=== PATIENT | female | born 1940 | race Caucasian/White ===

== ENCOUNTER 2019-07-31 17:03 | Emergency (ER) | payer MEDICARE, OTHER ==
[2019-07-31 19:56] LABS: #Neutrophils 3.8 thou/uL (1.40-6.50); %Basophils 1.2 % (0.0-1.0); %Eosinophils 2.4 % (0.0-10.0); %Lymphocytes 35.1 % (21.0-51.0); %Monocytes 7.6 % (0.0-10.0); %Neutrophils 53.8 % (42.0-75.0); Hemoglobin 12.6 g/dL (12.0-16.0); Mean Corpuscular HGB CONC 34.1 g/dL (32.0-36.0); Mean Corpuscular Hemoglobin 31.2 pg (27.0-31.0); Mean Corpuscular Volume 91.4 fL (78.0-98.0); Mean Platelet Volume 6.9 fL (7.4-10.4); Platelet Count 316 thou/uL (130-400); RBC Distribution Width 12.6 % (11.5-14.5); Red Blood Cell (RBC) Count 4.04 mill/uL (4.20-5.40); White Blood Cell (WBC) Count 7.1 thou/uL (4.8-10.8)
[2019-07-31 19:57] LABS: #Basophils 0.1 thou/uL (0.0-0.2); #Eosinphils 0.2 thou/uL (0.0-0.7); #Lymphocytes 2.5 thou/uL (1.20-3.40); #Monocytes 0.5 thou/uL (0.11-0.59)
[2019-07-31 20:03] LABS: INR-International Normal Ratio 1.3; PTT 35.9 SEC (22.9-36.1); Prothrombin Time 15.9 SEC (12.0-14.7)
[2019-07-31 20:06] LABS: Bilirubin Negative (Negative); Blood, Urine Negative (Negative); Clarity Clear (Clear); Glucose, Urine (Dipstick) Normal (Negative); Leukocyte Negative Leu/uL (Negative); Nitrite Negative (Negative); Protein, Urine (Dipstick) Negative (Neg-Trace); Urobilinogen Normal mg/dL (Less than 2)
[2019-07-31 20:16] LABS: ALT (SGPT) 11 U/L (8-55); AST (SGOT) 22 U/L (5-34); Albumin 4.2 g/dL (3.4-4.8); Alkaline Phosphatase 75 U/L (40-110); Anion Gap 14 mmol/L (10-20); BUN (Urea Nitrogen) 23 mg/dL (9.8-20.1); Bilirubin, Total 0.3 mg/dL (0.2-1.2); Calc. Creatinine Clearance 0 mL/min (70-130); Calcium 9.4 mg/dL (7.8-10.44); Carbon Dioxide 32 mmol/L (23-31); Chloride 96 mmol/L (98-107); Estimated GFR-MDRD 46; Glucose 106 mg/dL (83-110); Potassium 4.1 mmol/L (3.5-5.1); Protein, Total 8.2 g/dL (6.0-8.3); Sodium 138 mmol/L (136-145)
== END 2019-07-31 21:50 | disposition home or self-care (01) ==
LOC: ERS 17:03
DX: K62.5 Hemorrhage of anus and rectum (principal); I10 Essential (primary) hypertension; F32.9 Major depressive disorder, single episode, unspecified
CPT/HCPCS: 36415; 80053; 81003; 82274; 83605; 85025; 85610; 85730; 86850; 86900; 86901; 99283

== ENCOUNTER 2021-06-23 10:08 | Inpatient (IN) | payer MEDICARE, OTHER ==
[2021-06-23 10:40] LABS: #Eosinphils 0.1 thou/uL (0.0-0.7); #Lymphocytes 1.5 thou/uL (1.20-3.40); #Monocytes 0.7 thou/uL (0.11-0.59); #Neutrophils 4.7 thou/uL (1.40-6.50); %Basophils 0.4 % (0.0-1.0); %Eosinophils 1.7 % (0.0-10.0); %Lymphocytes 21.3 % (21.0-51.0); %Monocytes 9.4 % (0.0-10.0); %Neutrophils 67.3 % (42.0-75.0); Hemoglobin 12.9 g/dL (12.0-16.0); Mean Corpuscular HGB CONC 33.3 g/dL (32.0-36.0); Mean Corpuscular Hemoglobin 31.1 pg (27.0-31.0); Mean Corpuscular Volume 93.4 fL (78.0-98.0); Mean Platelet Volume 6.9 fL (7.4-10.4); Platelet Count 221 thou/uL (130-400); RBC Distribution Width 12.6 % (11.5-14.5); Red Blood Cell (RBC) Count 4.15 mill/uL (4.20-5.40)
[2021-06-23 11:01] LABS: ALT (SGPT) 17 U/L (8-55); AST (SGOT) 23 U/L (5-34); Albumin 3.8 g/dL (3.4-4.8); Alkaline Phosphatase 73 U/L (40-110); Anion Gap 12 mmol/L (10-20); BUN (Urea Nitrogen) 21 mg/dL (9.8-20.1); Bilirubin, Total 0.6 mg/dL (0.2-1.2); Calc. Creatinine Clearance 0 mL/min (70-130); Calcium 9.4 mg/dL (7.8-10.44); Carbon Dioxide 26 mmol/L (23-31); Chloride 103 mmol/L (98-107); Globulin 3.4 g/dL (2.4-3.5); Glucose 107 mg/dL (83-110); Lipase 12 U/L (8-78); Potassium 3.8 mmol/L (3.5-5.1); Protein, Total 7.2 g/dL (5.8-8.1); Sodium 137 mmol/L (136-145)
[2021-06-23 12:13] LABS: SARS-CoV-2 NAA Rapid Test Not Detected (NotDetected)
[2021-06-23 12:20] LABS: Bilirubin Negative (Negative); Blood, Urine Negative (Negative); Glucose, Urine (Dipstick) Negative (Negative); Ketone, Urine Negative (Negative); Leukocyte Negative (Negative); Nitrite Negative (Negative); Protein, Urine (Dipstick) Negative (Neg-Trace); Specific Gravity, Urine 1.015 (1.005-1.030); Urobilinogen 0.2 mg/dL (Less than 2)
[2021-06-23 12:25] LABS: Clarity Clear (Clear); RBC/HPF None Seen HPF (0-3)
[2021-06-23 12:26] LABS: Bacteria/HPF None Seen HPF (None Seen); WBC/HPF None Seen HPF (0-3)
[2021-06-23] MEDS ORDERED: Guaifenesin DM 100-10/5 ML UDCUP PO PRN (12:35)
[2021-06-23] MEDS ORDERED: Ondansetron PF 4 MG/2 ML Vial IVP PRN (12:35)
[2021-06-23] MEDS ORDERED: Morphine 4 MG/ML VIAL ONE (12:40)
[2021-06-23] MEDS ORDERED: Diltiazem 125 MG in Sodium Chloride 0.9% 100 ML IVPB SCH (12:45)
[2021-06-23] MEDS ORDERED: cefTRIAXone\\ROCEPHIN 1 GM VIAL ONE (13:18)
[2021-06-23] MEDS: cefTRIAXone\\ROCEPHIN 1 GM in Sodium Chloride 0.9% 100 ML IVPB SCH (14:12)
[2021-06-23] MEDS ORDERED: Azithromycin 500 MG VIAL ONE (14:23)
[2021-06-23] MEDS: Azithromycin 500 MG in Sodium Chloride 0.9% 250 ML 250 ML IVPB SCH (14:31)
[2021-06-23] MEDS ORDERED: Metoprolol Tartrate 25 MG TAB ONE (14:34)
[2021-06-23] MEDS: Metoprolol Tartrate 25 MG TAB PO SCH ×2 (14:38→22:11)
[2021-06-23] MEDS: oxyCODONE/Acetaminophen 5 mg/325 mg Tablet PO PRN (15:36)
[2021-06-23 17:33] VITALS: BMI 44.6
[2021-06-23] MEDS: Rivaroxaban 10 MG TAB PO SCH (19:00)
[2021-06-23] MEDS: Morphine 4 MG/ML VIAL SLOW IVP PRN (20:27)
[2021-06-23] MEDS ORDERED: HYDROcodone/Acetaminophen 10/325 mg Tablet PO PRN (21:32)
[2021-06-23] MEDS: Gabapentin 300 MG CAP PO SCH (22:08)
[2021-06-23] MEDS: Senokot S 8.6-50 MG TAB PO SCH (22:09)
[2021-06-23] MEDS: Pramipexole Di-HCl 0.125 MG TAB PO SCH (22:10)
[2021-06-23] MEDS: Doxepin HCl 10 MG CAP PO SCH (22:11)
[2021-06-23] MEDS ORDERED: Zolpidem Tartrate 5 MG TAB PO SCH (23:00)
[2021-06-24] MEDS: Acetaminophen 325 MG TAB PO PRN (00:38)
[2021-06-24] MEDS: Morphine 4 MG/ML VIAL SLOW IVP PRN ×5 (00:39→20:19)
[2021-06-24] MEDS: Ketorolac Tromethamine 30 MG/ML VIAL IVP SCH (03:42)
[2021-06-24] MEDS: oxyCODONE/Acetaminophen 5 mg/325 mg Tablet PO PRN ×3 (03:43→20:18)
[2021-06-24 04:58] LABS: #Basophils 0.1 thou/uL (0.0-0.2); #Eosinphils 0.1 thou/uL (0.0-0.7); #Lymphocytes 1.6 thou/uL (1.20-3.40); #Monocytes 0.7 thou/uL (0.11-0.59); #Neutrophils 4.7 thou/uL (1.40-6.50); %Basophils 0.7 % (0.0-1.0); %Eosinophils 1.8 % (0.0-10.0); %Lymphocytes 22.5 % (21.0-51.0); %Monocytes 9.6 % (0.0-10.0); %Neutrophils 65.4 % (42.0-75.0); Hemoglobin 12.3 g/dL (12.0-16.0); Mean Corpuscular HGB CONC 33.3 g/dL (32.0-36.0); Mean Corpuscular Hemoglobin 31.4 pg (27.0-31.0); Mean Corpuscular Volume 94.3 fL (78.0-98.0); Mean Platelet Volume 6.9 fL (7.4-10.4); Platelet Count 228 thou/uL (130-400); RBC Distribution Width 12.8 % (11.5-14.5); Red Blood Cell (RBC) Count 3.94 mill/uL (4.20-5.40); White Blood Cell (WBC) Count 7.2 thou/uL (4.8-10.8)
[2021-06-24 05:16] LABS: Anion Gap 14 mmol/L (10-20); BUN (Urea Nitrogen) 25 mg/dL (9.8-20.1); Calc. Creatinine Clearance 92 mL/min (70-130); Calcium 9.1 mg/dL (7.8-10.44); Carbon Dioxide 25 mmol/L (23-31); Chloride 103 mmol/L (98-107); Glucose 124 mg/dL (83-110); Potassium 3.9 mmol/L (3.5-5.1); Sodium 138 mmol/L (136-145)
[2021-06-24] MEDS: Senokot S 8.6-50 MG TAB PO SCH ×2 (08:46→20:15)
[2021-06-24] MEDS: Gabapentin 300 MG CAP PO SCH ×2 (08:46→20:17)
[2021-06-24] MEDS: Pramipexole Di-HCl 0.125 MG TAB PO SCH ×2 (08:46→20:17)
[2021-06-24] MEDS: Clopidogrel Bisulfate 75 MG TAB PO SCH (08:46)
[2021-06-24] MEDS: Metoprolol Tartrate 25 MG TAB PO SCH ×2 (08:46→15:40)
[2021-06-24] MEDS: cefTRIAXone\\ROCEPHIN 1 GM in Sodium Chloride 0.9% 100 ML IVPB SCH (13:37)
[2021-06-24] MEDS: Azithromycin 500 MG in Sodium Chloride 0.9% 250 ML 250 ML IVPB SCH (15:40)
[2021-06-24] MEDS: Rivaroxaban 10 MG TAB PO SCH (18:18)
[2021-06-24] MEDS: Amiodarone 200 MG TAB PO SCH (20:14)
[2021-06-24] MEDS: Zolpidem Tartrate 5 MG TAB PO SCH (20:16)
[2021-06-24] MEDS: Cefdinir 300 MG CAP PO SCH (20:16)
[2021-06-24] MEDS: Doxepin HCl 10 MG CAP PO SCH (20:17)
[2021-06-24] MEDS ORDERED: Flecainide 50 MG TAB PO SCH (21:00)
[2021-06-25] MEDS: Morphine 4 MG/ML VIAL SLOW IVP PRN ×5 (00:36→19:35)
[2021-06-25] MEDS ORDERED: Ketorolac Tromethamine 30 MG/ML VIAL ONE (03:29)
[2021-06-25] MEDS: oxyCODONE/Acetaminophen 5 mg/325 mg Tablet PO PRN ×4 (03:44→21:27)
[2021-06-25] MEDS: Ketorolac Tromethamine 30 MG/ML VIAL IVP SCH ×2 (04:06→04:08)
[2021-06-25 04:53] LABS: #Eosinphils 0.1 thou/uL (0.0-0.7); #Monocytes 0.6 thou/uL (0.11-0.59); #Neutrophils 5.2 thou/uL (1.40-6.50); %Basophils 0.6 % (0.0-1.0); %Eosinophils 1.4 % (0.0-10.0); %Lymphocytes 14.8 % (21.0-51.0); %Monocytes 8.9 % (0.0-10.0); %Neutrophils 74.4 % (42.0-75.0); Hemoglobin 12.1 g/dL (12.0-16.0); Mean Corpuscular HGB CONC 32.4 g/dL (32.0-36.0); Mean Corpuscular Hemoglobin 31.4 pg (27.0-31.0); Mean Corpuscular Volume 96.9 fL (78.0-98.0); Mean Platelet Volume 7.2 fL (7.4-10.4); Platelet Count 236 thou/uL (130-400); RBC Distribution Width 12.9 % (11.5-14.5); Red Blood Cell (RBC) Count 3.86 mill/uL (4.20-5.40); White Blood Cell (WBC) Count 7.1 thou/uL (4.8-10.8)
[2021-06-25 05:05] LABS: Anion Gap 15 mmol/L (10-20); BUN (Urea Nitrogen) 31 mg/dL (9.8-20.1); Calc. Creatinine Clearance 94 mL/min (70-130); Calcium 9.1 mg/dL (7.8-10.44); Carbon Dioxide 24 mmol/L (23-31); Cardiac Risk 2.4 (Less than 4.5); Chloride 102 mmol/L (98-107); Cholesterol 153 mg/dl (< 200 Desired); Glucose 129 mg/dL (83-110); HDL Cholesterol 65 mg/dL (>60 Neg Risk); LDL Cholesterol, Calculated 57 mg/dL; Potassium 3.7 mmol/L (3.5-5.1); Sodium 137 mmol/L (136-145); Triglycerides 156 mg/dL (Less than 150)
[2021-06-25] MEDS: Acetaminophen 325 MG TAB PO PRN (07:32)
[2021-06-25] MEDS: Gabapentin 300 MG CAP PO SCH ×2 (07:33→21:28)
[2021-06-25] MEDS: CeleCOXIB 100 MG CAP PO SCH (07:33)
[2021-06-25] MEDS: Amiodarone 200 MG TAB PO SCH ×2 (07:33→21:28)
[2021-06-25] MEDS: Senokot S 8.6-50 MG TAB PO SCH ×2 (07:34→21:28)
[2021-06-25] MEDS: Cefdinir 300 MG CAP PO SCH ×2 (07:34→21:29)
[2021-06-25] MEDS: Clopidogrel Bisulfate 75 MG TAB PO SCH (10:04)
[2021-06-25] MEDS: Pramipexole Di-HCl 0.125 MG TAB PO SCH ×2 (10:05→21:29)
[2021-06-25] MEDS ORDERED: Lidocaine 1% PF 5 ML VIAL ONE ×2 (15:46→16:00)
[2021-06-25] MEDS ORDERED: PROPOFOL 20 ML ONE (15:46)
[2021-06-25] MEDS ORDERED: PROPOFOL 200 MG/20 ML VIAL ONE (16:00)
[2021-06-25] MEDS: Rivaroxaban 10 MG TAB PO SCH (17:32)
[2021-06-25] MEDS: Doxepin HCl 10 MG CAP PO SCH (21:27)
[2021-06-25] MEDS: Zolpidem Tartrate 5 MG TAB PO SCH (21:29)
[2021-06-26] MEDS: Morphine 4 MG/ML VIAL SLOW IVP PRN ×3 (01:07→09:58)
[2021-06-26] MEDS ORDERED: Ketorolac Tromethamine 30 MG/ML VIAL ONE (02:45)
[2021-06-26] MEDS: oxyCODONE/Acetaminophen 5 mg/325 mg Tablet PO PRN ×3 (02:47→10:45)
[2021-06-26] MEDS: Ketorolac Tromethamine 30 MG/ML VIAL IVP SCH (02:48)
[2021-06-26 05:53] LABS: #Eosinphils 0.1 thou/uL (0.0-0.7); #Monocytes 0.5 thou/uL (0.11-0.59); #Neutrophils 4.6 thou/uL (1.40-6.50); %Basophils 0.4 % (0.0-1.0); %Eosinophils 2.3 % (0.0-10.0); %Lymphocytes 16.4 % (21.0-51.0); %Monocytes 7.8 % (0.0-10.0); %Neutrophils 73.1 % (42.0-75.0); Hemoglobin 12.2 g/dL (12.0-16.0); Mean Corpuscular Volume 96.9 fL (78.0-98.0); Mean Platelet Volume 7.3 fL (7.4-10.4); Platelet Count 250 thou/uL (130-400); RBC Distribution Width 12.7 % (11.5-14.5); Red Blood Cell (RBC) Count 3.81 mill/uL (4.20-5.40); White Blood Cell (WBC) Count 6.3 thou/uL (4.8-10.8)
[2021-06-26 06:31] LABS: Anion Gap 10 mmol/L (10-20); BUN (Urea Nitrogen) 34 mg/dL (9.8-20.1); Calc. Creatinine Clearance 89 mL/min (70-130); Carbon Dioxide 30 mmol/L (23-31); Chloride 100 mmol/L (98-107); Glucose 121 mg/dL (83-110); Potassium 4.1 mmol/L (3.5-5.1); Sodium 136 mmol/L (136-145)
[2021-06-26] MEDS: Amiodarone 200 MG TAB PO SCH (08:40)
[2021-06-26] MEDS: Cefdinir 300 MG CAP PO SCH (08:40)
[2021-06-26] MEDS: Clopidogrel Bisulfate 75 MG TAB PO SCH (08:40)
[2021-06-26] MEDS: Gabapentin 300 MG CAP PO SCH (08:40)
[2021-06-26] MEDS: Senokot S 8.6-50 MG TAB PO SCH (08:40)
[2021-06-26] MEDS: CeleCOXIB 100 MG CAP PO SCH (08:41)
[2021-06-26] MEDS: Pramipexole Di-HCl 0.125 MG TAB PO SCH (08:49)
[2021-06-26 11:35] VITALS: BP 132/72; TEMP 98
== END 2021-06-26 14:00 | disposition home or self-care (01) | DRG 308 ==
LOC: ERS 10:08 → ERHOLD 11:46 → 2NO 17:05
PROVIDERS: ADMIT Internal Medicine; ATTEND Internal Medicine
PROC: 5A2204Z Restoration of Cardiac Rhythm, Single (ICD-10-PCS; principal; 2021-06-25)
DX: I48.0 Paroxysmal atrial fibrillation (principal); J18.9 Pneumonia, unspecified organism; N30.00 Acute cystitis without hematuria; Z68.42 Body mass index [BMI] 45.0-49.9, adult; I42.8 Other cardiomyopathies; G62.9 Polyneuropathy, unspecified; I10 Essential (primary) hypertension; Z96.653 Presence of artificial knee joint, bilateral; F32.A Depression, unspecified; G89.4 Chronic pain syndrome; Z66 Do not resuscitate; M79.7 Fibromyalgia; F39 Unspecified mood [affective] disorder; I73.9 Peripheral vascular disease, unspecified; E66.01 Morbid (severe) obesity due to excess calories; Z20.822 Contact with and (suspected) exposure to COVID-19; Z90.49 Acquired absence of other specified parts of digestive tract; Z90.710 Acquired absence of both cervix and uterus; Z98.0 Intestinal bypass and anastomosis status; Z79.899 Other long term (current) drug therapy
CPT/HCPCS: 36415; 71045; 80048; 80053; 80061; 81003; 83690; 83880; 84443; 84484; 85025; 87040; 92960; 93005; 93306; 94760; J0456; J0696; J1885; J2270; J2704; J3490; J7050; U0002